=== PATIENT | female | born 1950 | race Caucasian/White ===

== ENCOUNTER → 2016-07-05 | Outpatient (CLI) | payer OTHER ==
[~2016-07-05] MED LIST: AMARYL1 MG PO; ASPIRIN81 M2 PO; CELEBREX 200 M200 M1 PO; ELIQUIS5 MG PO; ENALAPRIL MALEA20 MG PO; FLECAINIDE ACET50 M1 PO; GLUCOPHAGE1000 MG PO; HYDROCHLOROTHIA25 M2 PO; LOVASTAT10 PO; TOPROL XL25 MG PO
[2016-07-05 09:20] LABS: HEMOGLOBIN 12.8 gm/dL (12.0-15.0); MCH 27.9 pg (26.0-34.0); MCHC 32.9 % (28.0-37.0); RBC 4.59 mil/uL (4.20-5.00); RDW 15.1 % (10.5-14.5); WBC 11.7 thou/uL (4.0-11.0)
[2016-07-05 09:29] LABS: CALCIUM 8.9 mg/dL (8.5-10.1); POTASSIUM 4.3 mmol/L (3.5-5.1)
[2016-07-05 09:41] LABS: ALBUMIN 3.3 g/dL (3.4-5.0); TOTAL BILIRUBIN 0.3 mg/dL (<0.1-1.0); TOTAL PROTEIN 7.6 g/dL (6.4-8.2)
== END ==
LOC: CAT 08:44
PROVIDERS: Internal Medicine Cardiovascular Disease
DX: I48.91 Unspecified atrial fibrillation (principal)

== ENCOUNTER 2016-07-09 06:29 | Observation (INO) | payer OTHER ==
[~2016-07-09] VITALS: Ht 165.1 cm; Wt 102.3 kg
--- NOTE | ~2016-07-09 | D ---
[facility] [place] [address] DISCHARGE SUMMARY Name: TRACEE MCCARTNEY Room #: 203-P [facility] Enrique Felton#: [id number] Admission: 07/09/16 Attend Phys: Josue Rangel MD Discharge: 07/10/16 Date of : 48 Report #: [id number] THIS REPORT FOR: //name// CC: Megha Rangel DATE OF SERVICE: 07/10/2016 FINAL DIAGNOSES: 1. Atrial fibrillation, status post ablation. 2. Diabetes mellitus. 3. Hypertension. 4. Hypercholesterolemia. HOSPITAL COURSE: The patient presented electively for an EP procedure with Dr. Josue Rangel. She did undergo ablation of atrial fibrillation. She has remained hemodynamically stable overnight. No further episodes of AFib is noted on telemetry. Her appears to be stable. She is ambulating without any complaints. She will be discharged home and follow up with Dr. Rangel. FINAL DISPOSITION: Eliquis 5 mg twice a day, Celebrex, Vasotec 20 mg twice a day, flecainide 100 mg twice a day, Amaryl as directed, hydrochlorothiazide once a day, lovastatin, metformin, and Toprol-XL twice a day. <ELECTRONICALLY SIGNED> By: Mamadou Hu MD 07/11/16 0748 [id number] 1430 Mamadou Hu MD /aleksander
--- NOTE | ~2016-07-09 | P ---
[facility] [place] [address] PROCEDURE REPORT Name: TRACEE MCCARTNEY Room #: 203-P [facility] Enrique Felton#: [id number] Admission: 07/09/16 Attend Phys: Josue Rangel MD Discharge: 07/10/16 Date of : 48 Report #: [id number] THIS REPORT FOR: //name// CC: Megha Rangel MD DATE OF SERVICE: 07/09/2016 PREOPERATIVE DIAGNOSIS: Paroxysmal atrial fibrillation. POSTOPERATIVE DIAGNOSIS: Paroxysmal atrial fibrillation. HISTORY: The patient is a 65-year-old female with a history of paroxysmal atrial fibrillation who has failed antiarrhythmic drugs and is here for an ablation. ANESTHESIA: The patient underwent general anesthesia with no anesthesia related complications. DESCRIPTION OF PROCEDURE: The patient underwent informed consent. We discussed the details of the procedure including the risks, which include but not limited to bleeding, vascular damage, cardiac perforation, damage to the bear river conduction system requiring permanent pacemaker as well as stroke or [place]. She understood these risks and is willing to proceed. As such, she is brought to the EP laboratory in a fasting and nonsedated state and prepped and draped in a sterile fashion and was placed under general anesthesia. Next, I injected lidocaine to the right groin, I obtained access to the right femoral vein x 3, placing an 8-Portuguese, 7-Portuguese and a 9-Portuguese short sheath, using a modified Seldinger technique. Then, I positioned a decapolar catheter into the coronary sinus and an ice catheter into the right atrium. She had a nice thin interatrial septum. She was systemically heparinized and a transseptal was performed using an SL1 sheath and the Payson needle. Once in the left atrium, I exchanged the SL1 sheath for a cryo sheath and placed a cryo wire balloon into the left atrium. At baseline, the patient was in sinus rhythm with sinus cycle length of 1010 milliseconds, DC interval 160 milliseconds, QRS duration 95 milliseconds, QT interval 480 milliseconds. Next, I was able to isolate the left inferior with 2 freezes and the right superior with 2 freezes, with isolation of the right superior within 30 seconds of the second freeze. The right inferior had two branches. I first isolated the upper branch and then isolated the inferior branches requiring 2 freeze. The left superior was quite challenging and I performed multiple freezes in this initially and returned to this after taking care of the right-sided veins performed additional freezes and there remained persistence of small electrograms that I continued to conduct. With recannulation of the left superior pulmonary vein, the patient did go into atrial flutter, which had not been clinically seen before and I was able to pace terminate her out of this. Post-ablation, she was in sinus rhythm with a sinus [facility] [address] [place] [address] PROCEDURE REPORT Name: TRACEE MCCARTNEY Room #: 203-P [facility] Felton#: [id number] Admission: 07/09/16 Attend Phys: Josue Rangel MD Discharge: 07/10/16 Date of : 48 Report #: [id number] cycle length of 945 milliseconds, DC interval 180 milliseconds, QRS duration 95 milliseconds, and QT interval of 433 milliseconds. As such, the procedure was completed. I verified with intracardiac ultrasound. There was no pericardial effusion. The patient received systemic protamine. Once ACT was in acceptable range, catheters and sheaths were pulled. Hemostasis was obtained. The patient awoke neurologically and hemodynamically intact with no complications and no significant bleeding. CONCLUSIONS: 1. Successful isolation of the pulmonary veins except for the left superior pulmonary vein. 2. Induction of atrial flutter that was successfully pace terminated. <ELECTRONICALLY SIGNED> By: Josue Rangel MD 07/23/16 1225 1449 1810 Josue Rangel MD /nt
--- NOTE | ~2016-07-09 | H ---
[facility] [address] [place] [address] HISTORY AND PHYSICAL Name: TRACEE MCCARTNEY Room #: 203-P [facility] Enrique MAbelRAbel#: [id number] Admission: 07/09/16 Attend Phys: Josue Rangel MD Discharge: 07/10/16 Date of : 48 Report #: [id number] THIS REPORT FOR: //name// For History and Physical, please see office documentation/handwritten note in the patient's medical record. <ELECTRONICALLY SIGNED> By: Josue Rangel MD 07/13/16 1339 0948 Josue Rangel MD /
[2016-07-09 07:10] VITALS: BP 112/78
[2016-07-09 07:22] LABS: ABSOLUTE NEUTROPHILS 8.6 thou/uL (1.4-8.2); BASOPHILS 0.8 % (0.0-2.0); EOSINOPHILS 2.7 % (0.0-3.0); HEMATOCRIT 38.1 % (37.0-47.0); HEMOGLOBIN 12.3 gm/dL (12.0-15.0); MCH 27.7 pg (26.0-34.0); MCHC 32.4 % (28.0-37.0); MCV 85.5 fL (80.0-100.0); MONOCYTES 7.4 % (1.0-8.0); PLATELET COUNT 226 thou/uL (150-400); POLYS 73.1 % (36.0-66.0); RBC 4.45 mil/uL (4.20-5.00); RDW 14.8 % (10.5-14.5); WBC 11.7 thou/uL (4.0-11.0)
[2016-07-09 07:32] LABS: MANUAL DIFF NO
[2016-07-09 07:36] LABS: APTT 30.1 Seconds (24.5-32.8); CALCIUM 9.3 mg/dL (8.5-10.1); PROTIME 10.7 Seconds (9.3-11.4)
[2016-07-09 07:42] LABS: ALBUMIN 3.2 g/dL (3.4-5.0); TOTAL BILIRUBIN 0.3 mg/dL (<0.1-1.0); TOTAL PROTEIN 7.4 g/dL (6.4-8.2)
[2016-07-09 15:03] VITALS: BP 131/63
[2016-07-09 16:40] VITALS: BP 119/52
[2016-07-09 19:19] VITALS: BP 120/57
[2016-07-10 00:14] VITALS: BP 111/57
[2016-07-10 03:59] VITALS: BP 111/47
[2016-07-10 08:00] VITALS: BP 132/57
[2016-07-10 12:00] VITALS: BP 115/56
[2016-07-10 13:03] VITALS: BP 115/56
== END 2016-07-10 13:53 | disposition home or self-care (01) ==
LOC: CATH 06:29 → 2N 14:55
PROVIDERS: Internal Medicine Cardiovascular Disease
DX: I48.0 Paroxysmal atrial fibrillation (principal); E11.9 Type 2 diabetes mellitus without complications; I10 Essential (primary) hypertension; E78.00 Pure hypercholesterolemia, unspecified; E78.5 Hyperlipidemia, unspecified; Z79.899 Other long term (current) drug therapy; Z79.82 Long term (current) use of aspirin
CPT/HCPCS: 62110; 62900; 65020; 65043; 70005

== ENCOUNTER → 2017-08-04 | Outpatient (CLI) | payer OTHER | LOC: SLEEPLAB 09:39 | DX: G47.33 Obstructive sleep apnea (adult) (pediatric) (principal); I48.91 Unspecified atrial fibrillation ==

== ENCOUNTER → 2017-08-25 | Outpatient (CLI) | payer OTHER | LOC: SLEEPLAB 12:21 | DX: G47.33 Obstructive sleep apnea (adult) (pediatric) (principal) ==

== ENCOUNTER → 2020-08-14 | Outpatient (CLI) | payer OTHER | LOC: SJCVCIMAG 09:53 | PROVIDERS: ATTEND Internal Medicine Cardiovascular Disease | DX: I08.1 Rheumatic disorders of both mitral and tricuspid valves (principal); I48.0 Paroxysmal atrial fibrillation; Z79.82 Long term (current) use of aspirin; Z79.899 Other long term (current) drug therapy ==

== ENCOUNTER → 2020-09-02 | Outpatient (CLI) | payer OTHER | LOC: SJCVC 12:58 | PROVIDERS: ATTEND Internal Medicine Cardiovascular Disease | DX: Z01.810 Encounter for preprocedural cardiovascular examination (principal); I48.0 Paroxysmal atrial fibrillation; I10 Essential (primary) hypertension; E11.9 Type 2 diabetes mellitus without complications; G47.33 Obstructive sleep apnea (adult) (pediatric); E78.5 Hyperlipidemia, unspecified; E66.3 Overweight; Z79.82 Long term (current) use of aspirin; Z79.84 Long term (current) use of oral hypoglycemic drugs; Z79.899 Other long term (current) drug therapy; Z72.89 Other problems related to lifestyle; Z79.4 Long term (current) use of insulin; Z88.1 Allergy status to other antibiotic agents ==